=== PATIENT | female | born 1995 | race Hispanic/Latino ===

== ENCOUNTER 2022-03-02 22:48 | Emergency (ER) | payer OTHER, SELFPAY ==
[2022-03-03] MEDS ORDERED: Lidocaine 1% (PF) 30 ML VIAL ONE (00:26)
[2022-03-03] MEDS ORDERED: Lidocaine 1% PF 5 ML VIAL ONE (00:29)
== END 2022-03-03 01:04 | disposition home or self-care (01) ==
LOC: ERS 22:48
DX: L02.31 Cutaneous abscess of buttock (principal)
CPT/HCPCS: 10060; J2001

== ENCOUNTER 2025-03-08 08:44 | Emergency (ER) | payer BC ==
[2025-03-08] MEDS ORDERED: Ketorolac Tromethamine 30 MG (1 mL) VIAL ONE (10:47)
[2025-03-08] MEDS ORDERED: Lidocaine 1% PF 5 ML VIAL ONE (11:03)
== END 2025-03-08 11:34 | disposition home or self-care (01) ==
LOC: ERS 08:44
DX: S61.111A Laceration without foreign body of right thumb with damage to nail, initial encounter (principal); W26.0XXA Contact with knife, initial encounter; Z23 Encounter for immunization
CPT/HCPCS: 12002; 90471; 90715; 96372; J1885